=== PATIENT | male | born 1955 | race Caucasian/White ===

== ENCOUNTER 2019-09-11 15:53 | Outpatient (CLI) | payer BC ==
--- NOTE | 2019-09-11 17:22 | RAD ---
TWO VIEW CHEST: 09/11/19 INDICATIONS: Shortness of breath. COMPARISON: Prior exam from July 19, 2008. Elevation of left hemidiaphragm is a stable finding when compared to exam of 2008. The lungs are janet r. No infiltrate identified. Heart and mediastinum unremarkable. Osseous structures unremarkable. IMPRESSION: No acute process. POS: [facility]
== END 2019-09-11 15:54 | disposition home or self-care (01) ==
LOC: BICRAD 15:53
PROVIDERS: ATTEND Internal Medicine Cardiovascular Disease
DX: R06.02 Shortness of breath (principal); R06.00 Dyspnea, unspecified
CPT/HCPCS: 71046